=== PATIENT | male | born 1995 | race Caucasian/White ===

== ENCOUNTER 2018-05-06 20:05 | Emergency (ER) | payer OTHER ==
[~2018-05-06] VITALS: Ht 182.9 cm; Wt 83.9 kg
[2018-05-06] MEDS ORDERED: IBUPROFEN 600600 M1 PO (21:22)
[2018-05-06 22:05] VITALS: BP 130/86
== END 2018-05-06 22:05 | disposition home or self-care (01) ==
LOC: ER 20:05
DX: S93.492A Sprain of other ligament of left ankle, initial encounter (principal); F17.210 Nicotine dependence, cigarettes, uncomplicated; Z91.040 Latex allergy status; X50.1XXA Overexertion from prolonged static or awkward postures, initial encounter; Y93.89 Activity, other specified; Y92.89 Other specified places as the place of occurrence of the external cause; Y99.8 Other external cause status